=== PATIENT | male | born 1935 | race Caucasian/White ===

== ENCOUNTER → 2019-12-05 11:58 | Outpatient (CLI) | payer MEDICARE, SELFPAY ==
--- NOTE | ~2019-12-05 | XR_ITS ---
EXAMINATION: XR knee RT min 4V DATE: 12/05/2019 12:28 INDICATION: Right knee pain TECHNIQUE: Four views of the right knee were obtained. COMPARISON: None. FINDINGS: There is no fracture. 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 A small knee joint effusion i s present. Calcified atherosclerosis is noted. IMPRESSION: 1. No acute osseous abnormality. Reviewed, dictated and finalized at location B.
--- NOTE | ~2019-12-05 | XR_ITS ---
EXAMINATION: XR knee LT min 4V DATE: 12/05/2019 12:28 INDICATION: Left knee pain TECHNIQUE: Four views of the left knee were obtained. COMPARISON: None. FINDINGS: There is no fracture. 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 A small knee joint effusion i s present. Calcified atherosclerosis is noted. IMPRESSION: 1. No acute osseous abnormality. Reviewed, dictated and finalized at location B.
== END ==
PROVIDERS: Visit Provider Specialist
DX: M25.561 Pain in right knee (principal); M25.562 Pain in left knee
CPT/HCPCS: 73564